=== PATIENT | male | born 1960 | race Caucasian/White ===

== ENCOUNTER → 2024-03-04 | Outpatient (CLI) | payer OTHER ==
[~2024-03-04] MED LIST: Iohexol 300 - 100 ML VIAL IV ONE; NS 100 ML IV SCH; PRINIVIL20 MG PO; VITAMIN B125000 MCG PO; ZYLOPRIM 300MG300 MG PO
== END ==
LOC: COL.RAD 08:09
DX: R16.1 Splenomegaly, not elsewhere classified (principal)
CPT/HCPCS: Q9967